=== PATIENT | male | born 1955 | race Caucasian/White ===

== ENCOUNTER 2016-12-09 15:32 | Emergency (ER) | payer OTHER ==
--- NOTE | 2016-12-09 16:04 | EDM.PDOC ---
ED HPI GENERAL MEDICAL PROBLEM - General Chief Complaint: Trauma Stated Complaint: PELVIC PAIN,BUCKED OFF HORSE Time Seen by Provider: 12/09/16 15:55 Source of Information: Reports: Patient History Limitations: Reports: No Limitations - History of Present Illness INITIAL COMMENTS - FREE TEXT/NARRATIVE: 61-year-old male presents to the ED for evaluation after being bucked off a horse at noon today. Patient reports first time he got on his horse all year. Horse started bucking almost immediately when he got into the saddle. The horse bucked twice. While he was up in the air the horse bucked the second time and met him with the saddle in the perineum and pelvis area. He then fell off the horse and landed in the sand on his back. Did not hit his head or hurt his neck. Did not knock the wind out of him. Since the time of injuries had trouble walking due to severe pain in his anterior lower abdomen and pelvis area. Denies any injuries to the testicles. Patient has voided twice and look for blood and did not see any since the time of injury. Does feel diffuse lower abdominal pain and some bloating. He has not had a bowel movement since time of injury. No some dysuria with voiding. Very painful to try and walk. Pain is felt mostly anteriorly over the pubic symphysis. Onset: Today Onset Date: 12/09/16 Onset Time: 12:00 Duration: Hour(s):, Getting Worse Location: Reports: Pelvis (Perineum) Pelvic Pain Score (Numeric/FACES): 10 - Related Data Allergies Allergy/AdvReac Type Severity Reaction Status Date / Time No Known Allergies Allergy Verified 12/09/16 16:44 Past Medical History Cardiovascular History: Reports: Hypertension (Mild hypertension) Genitourinary History: Reports: BPH, Renal Calculus (Did pass the stone on his own. Happened one time) Endocrine/Metabolic History: Reports: Diabetes, Type II (Has been type II diabetic for about 10 years. Controlled currently on metformin 1 g twice daily and glyburide 5 mg twice daily. Also uses Lantus insulin 50 units twice a day.) Social & Family History - Tobacco Use Smoking Status *Q: Never Smoker - Caffeine Use Caffeine Use: Reports: Coffee - Recreational Drug Use Recreational Drug Use: No - Living Situation & Occupation Living situation: Reports: Occupation: Employed Review of Systems - Review of Systems Review Of Systems: See Below Constitutional: Reports: No Symptoms Eyes: Reports: Other Ears: Reports: No Symptoms Nose: Reports: No Symptoms Mouth/Throat: Reports: No Symptoms Respiratory: Reports: No Symptoms Cardiovascular: Reports: No Symptoms GI/Abdominal: Reports: Abdominal Pain (Feels a little bloated with diffuse lower abdominal discomfort today.) Genitourinary: Reports: Dysuria (Mild), Painful Urination (Mild has voided twice since time of injury at noon) Musculoskeletal: Reports: Back Pain, Other Skin: Reports: No Symptoms (Pelvic pain and perineum pain.) Neurological: Reports: No Symptoms Psychiatric: Reports: No Symptoms ED EXAM, GENERAL - Physical Exam Exam: See Below Exam Limited By: No Limitations General Appearance: Alert, WD/WN, No Apparent Distress, Other (Vital signs are not stable. He is hypertensive at 146/19 is went as high as 171/101 with a resting heart rate of 132/m. This is sinus tachycardia. Represent significant pain response) Head: Atraumatic, Normocephalic. No: Facial Swelling, Facial Tenderness, Sinus Tenderness Neck: Normal Inspection, Supple, Non-Tender, Full Range of Motion Respiratory/Chest: No Respiratory Distress, Lungs Clear, Normal Breath Sounds, No Accessory Muscle Use, Other (Compression of all ribs and sternum showed no evidence of fracture or injury to the thorax.). No: Rhonchi, Wheezing, Retractions, Splinting Cardiovascular: Normal Peripheral Pulses, Regular Rate, Rhythm, No Edema, No Murmur Peripheral Pulses: 3+: Posterior Tibial (L), Posterior Tibial (R), Dorsalis Pedis (L), Dorsalis Pedis (R) GI/Abdominal: Tender (Diffuse tenderness across both lower quadrants infraumbilically and particularly suprapubically. There is no change in color. He has severe tenderness on minimal palpation over the pubic symphysis. There is a slight bruise or ecchymoses approximate 1.4 cm in diameter just to the left of the penis over the superior pubic ramus.), Abnormal Bowel Sounds ( Hypoactive bowel sounds in all 4 quadrants.) (Male) Exam: Other (Scrotum and scrotal contents are uninjured. Penis shows no blood at the urethral meatus.) Rectal (Males) Exam: Normal Rectal Tone, Other (Prostate is proximal be 3 times normal size but is in the normal position and is not high or riding and was nontender.). No: Prostate Normal Back Exam: Normal Inspection, Other (Palpation of the neck thoracic and lumbar spine and SI joints did not show any tenderness or contusion abrasions.) Extremities: Other (He cannot lift either leg off the gurney on his own volition due to pain in his pelvis. I could lift them in flexion and flexion at the knee with internal/external rotation of both hips without any discomfort. Full unopposed range of motion of both upper extremities no injuries to the wrists elbows or shoulders.) Neurological: Alert, Oriented, CN II-XII Intact, Normal Cognition, Normal Gait Psychiatric: Normal Affect, Normal Mood Skin Exam: Warm, Dry, Intact, Normal Color, No Rash Course - Vital Signs Last Recorded V/S: Last Vital Signs Temp 36.3 C 12/09/16 20:44 Pulse 126 H 12/09/16 20:44 Resp 20 12/09/16 20:44 BP 150/129 H 12/09/16 20:44 Pulse Ox 96 12/09/16 20:44 - Orders/Labs/Meds Labs: Laboratory Tests 12/09/16 12/09/16 12/09/16 Range/Units 16:13 16:28 16:28 WBC 17.01 H (4.23-9.07) K/mm3 RBC 4.55 L (4.63-6.08) M/mm3 Hgb 14.3 (13.7-17.5) gm/L Hct 40.6 (40.1-51.0) % MCV 89.2 (79.0-92.2) fl MCH 31.4 (25.7-32.2) pg MCHC 35.2 (32.2-35.5) g/dl RDW Std Deviation 40.6 (35.1-43.9) fL Plt Count 199 (163-337) K/mm3 MPV 10.1 (9.4-12.3) fl Neutrophils % (Manual) 85 H (40-60) % Band Neutrophils % 0 (0-10) % Lymphocytes % (Manual) 11 L (20-40) % Atypical Lymphs % 0 % Monocytes % (Manual) 3 (2-10) % Eosinophils % (Manual) 1 (0.8-7.0) % Basophils % (Manual) 0 L (0.2-1.2) Platelet Estimate Adequate RBC Morph Comment Normal PT (8.0-13.0) SECONDS INR APTT (22-36) SECONDS Sodium 135 L (136-145) mEq/L Potassium 3.9 (3.5-5.1) mEq/L Chloride 101 (98-107) mEq/L Carbon Dioxide 25 (21-32) mEq/L Anion Gap 12.9 (5-15) BUN 9 (7-18) mg/dL Creatinine 1.1 (0.7-1.3) mg/dL Est Cr Clr Drug Dosing 76.42 mL/min Estimated GFR (MDRD) > 60 (>60) mL/min BUN/Creatinine Ratio 8.2 L (14-18) Glucose 269 H (80-115) mg/dL Calcium 9.2 (8.5-10.1) mg/dL Total Bilirubin 1.1 H (0.2-1.0) mg/dL AST 26 (15-37) U/L ALT 41 (16-63) U/L Alkaline Phosphatase 49 (46-116) U/L Total Protein 6.9 (6.4-8.2) g/dl Albumin 4.1 (3.4-5.0) g/dl Globulin 2.8 gm/dL Albumin/Globulin Ratio 1.5 (1-2) Urine Color Yellow (Yellow) Urine Appearance Clear (Clear) Urine pH 6.0 (5.0-8.0) Ur Specific [place] 1.010 (1.005-1.030) Urine Protein Negative (Negative) Urine Glucose (UA) Trace H (Negative) Urine Ketones Negative (Negative) Urine Occult Blood Negative (Negative) Urine Nitrite Negative (Negative) Urine Bilirubin Negative (Negative) Urine Urobilinogen 0.2 (0.2-1.0) Ur Leukocyte Esterase 2+ H (Negative) Urine RBC 0-5 (0-5) /hpf Urine WBC 10-20 H (0-5) /hpf Ur Epithelial Cells 0-5 (0-5) /hpf Urine Bacteria Few (FEW) /hpf Urine Mucus Not seen (FEW) /hpf Blood Type 12/09/16 12/09/16 Range/Units 16:28 16:28 WBC (4.23-9.07) K/mm3 RBC (4.63-6.08) M/mm3 Hgb (13.7-17.5) gm/L Hct (40.1-51.0) % MCV (79.0-92.2) fl MCH (25.7-32.2) pg MCHC (32.2-35.5) g/dl RDW Std Deviation (35.1-43.9) fL Plt Count (163-337) K/mm3 MPV (9.4-12.3) fl Neutrophils % (Manual) (40-60) % Band Neutrophils % (0-10) % Lymphocytes % (Manual) (20-40) % Atypical Lymphs % % Monocytes % (Manual) (2-10) % Eosinophils % (Manual) (0.8-7.0) % Basophils % (Manual) (0.2-1.2) Platelet Estimate RBC Morph Comment PT 10.7 (8.0-13.0) SECONDS INR 0.98 APTT 23 (22-36) SECONDS Sodium (136-145) mEq/L Potassium (3.5-5.1) mEq/L Chloride (98-107) mEq/L Carbon Dioxide (21-32) mEq/L Anion Gap (5-15) BUN (7-18) mg/dL Creatinine (0.7-1.3) mg/dL Est Cr Clr Drug Dosing mL/min Estimated GFR (MDRD) (>60) mL/min BUN/Creatinine Ratio (14-18) Glucose (80-115) mg/dL Calcium (8.5-10.1) mg/dL Total Bilirubin (0.2-1.0) mg/dL AST (15-37) U/L ALT (16-63) U/L Alkaline Phosphatase (46-116) U/L Total Protein (6.4-8.2) g/dl Albumin (3.4-5.0) g/dl Globulin gm/dL Albumin/Globulin Ratio (1-2) Urine Color (Yellow) Urine Appearance (Clear) Urine pH (5.0-8.0) Ur Specific [place] (1.005-1.030) Urine Protein (Negative) Urine Glucose (UA) (Negative) Urine Ketones (Negative) Urine Occult Blood (Negative) Urine Nitrite (Negative) Urine Bilirubin (Negative) Urine Urobilinogen (0.2-1.0) Ur Leukocyte Esterase (Negative) Urine RBC (0-5) /hpf Urine WBC (0-5) /hpf Ur Epithelial Cells (0-5) /hpf Urine Bacteria (FEW) /hpf Urine Mucus (FEW) /hpf Blood Type O NEGATIVE Meds: Medications Discontinued Medications Generic Name Dose Route Start Last Admin Trade Name Tana PRN Reason Stop Dose Admin Hydromorphone HCl 1 mg 12/09/16 16:06 12/09/16 17:00 Dilaudid IVPUSH 12/09/16 16:07 1 mg ONETIME ONE Administration Sodium Chloride 1,000 mls @ 999 mls/hr 12/09/16 16:15 12/09/16 16:55 Normal Saline IV 999 mls/hr ASDIRECTED LAINEY Administration Iopamidol 150 ml 12/09/16 16:20 12/09/16 16:43 Isovue-300 (61%) IVPUSH 12/09/16 16:21 150 ml ONETIME ONE Administration Metoclopramide HCl 10 mg 12/09/16 16:06 12/09/16 16:56 Reglan IVPUSH 12/09/16 16:07 10 mg ONETIME ONE Administration Sodium Chloride 10 ml 12/09/16 16:20 12/09/16 16:43 Saline Flush FLUSH 12/09/16 16:21 10 ml ONETIME ONE Administration - Radiology Interpretation Free Text/Narrative:: 61-year-old male presents to the ED after being bucked off a horse at noon today. Patient states the horse bucked twice with the second block causing this settled to strike a very hard in the perineum and pelvis area. Not bleeding came down on the saddle horn. He fell off a horse after that landing hard on his back in the sand. Since time of injury he has had increasing pain in his lower abdomen and pelvis and can barely walk. Does not feel dizzy or lightheaded. He is having significant pain. Resting heart rate was 1 32/m sinus tachycardia. Blood pressure is elevated 170 /101 suggesting significant pain he has voided twice without noted blood but mild dysuria with voiding. He has not had a bowel movement. He is a type II diabetic controlled with insulin and oral medications. There are no open wounds. Examination suggests reveals pain across both lower quadrants of the lower abdomen with guarding. Marked pain on palpation of the pubic symphysis suggestive of likely diastases or fracture of the superior pubic rami particular in the left side. No pain on palpation of the ischial tuberosities. No blood at the urethral meatus and the scrotal contents are normal. No other injuries are identified. Concern for pelvic fracture appreciated. There is no evidence of open book instability. Plan urinalysis IV normal saline at open since he has some sinus tachycardia Dilaudid 1 mg IV with Reglan [address] of the abdomen and pelvis will be performed with IV contrast. Type and screen ordered. Possibility of retroperitoneal bleeding exists. - Re-Assessments/Exams Free Text/Narrative Re-Assessment/Exam: 12/09/16 16:35: CT of the abdomen and pelvis reveals the liver or the spleen the gallbladder pancreas and kidneys to be within normal limits. Normal bowel pattern. There is however a pelvic hematoma that is pushing the urinary bladder to the right side. There is a flush of contrast in the middle of the hematoma suggesting continued active bleeding. No identified fracture within the pelvis ring identified. Patient is exquisitely tender on palpation of the pubic symphysis suggesting possible ligamentous injury or minimal diastases. Interestingly he has appreciated can walk backwards without much pain but cannot walk forwards. Due to the hematoma he will need to be transferred to a facility that may be able to provide interventional radiology treatment if needed to stop pelvic bleeding. Patient has not yet received pain medication. 12/09/16 17:10: Urinalysis shows a few 5-10 white blood cells but no blood. I contacted [facility] in [facility] as the patient has received care through the [facility] facility in the past. After several rounds it was determined that it was no interventional radiology availability at that facility and they declined to accept him. I was then able to speak to [facility] in [facility] and they too declined although they did have interventional radiology availability they did not have any intensive care beds and Dr. Reardon -- trauma surgeon did not feel comfortable accepting the patient in case there was not a definite bed available for him. 12/09/16 19:00: I was called away for Coumadin the ICU for a period of time over half an hour and this delayed further consultation with [facility] in [place] as this was the closest facility that could possibly accept care. I spoke with Dr. Leggett through the emergency department and he has accepted care.White blood cell count was 17.01 with a left shift of 85% neutrophils. Hemoglobin is 14.3 with hematocrit of 40.6 platelets normal 199,000. Coags were normal. Sodium was slightly low at 135 potassium 3.9. Anion gap is 12.9.. Creatinine is 1.1. Of note he did receive contrast for his CT abdomen and pelvis and he is on metformin and metformin should be withheld for the next 72 hours. Blood glucose was 269. Urinalysis showed 2+ leukocyte esterase and 10-20 WBCs per high-power field. Of note this was a non-catheterized specimen. No blood was appreciated within the urine that would make one suspicious for a urethral prosthetic injury. Departure - Departure Time of Disposition: 20:45 Disposition: DC/Tfer to Acute Hospital 02 Condition: Serious Clinical Impression: Pelvic hematoma in male - Discharge Information Referrals: Mark Lee MD [Primary Care Provider] - Forms: ED Department Discharge Additional Instructions: This patient was transferred to [facility] in [place] due to significant pelvic hematoma which appeared to be actively bleeding at the time of CT. No fractures are identified within the pelvic ring. Injury occurred as a result of a horse accident. Both hospitals in [facility] declined to accept the patient for various reasons. No interventional radiology available at [facility] and no ICU bed available at [facility] in [place]. He was there for fallen to [facility] in [place] for definitive management and care. Vital signs were stable at the time of discharge and pain was controlled.
[2016-12-09] MEDS ORDERED: Metoclopramide 10 MG/2 ML SDV IVPUSH ONE (16:06)
[2016-12-09] MEDS ORDERED: HYDROmorphone 1 MG/ML Syringe IVPUSH ONE (16:06)
[2016-12-09] MEDS ORDERED: Sodium Chloride 0.9% 1,000 ML IV SCH (16:15)
[2016-12-09] MEDS ORDERED: Iopamidol 612 MG/ML 150 ML Bottle IVPUSH ONE (16:20)
[2016-12-09] MEDS ORDERED: Sodium Chloride 0.9% 10 ML Syringe FLUSH ONE (16:20)
--- NOTE | 2016-12-09 17:27 | CT ---
CT abdomen and pelvis Technique: Multiple axial sections were obtained from above the dome of the diaphragm inferiorly through the pubic symphysis. Intravenous contrast was utilized. No oral contrast has been given. Findings: Soft tissue density is seen within the left lower pelvis which is compatible with pelvic hematoma. There is slight increased density within this hematoma which is felt compatible with contrast from active bleed. This finding displaces the inferior bladder. Pubic symphysis is slightly widened although the sacroiliac joints are within normal limits in width. This finding may be incidental. There is no discrete pelvic fracture noted. Vacuum phenomena is seen within the pubic symphysis. Visualized lung bases appear without acute change. Liver shows mild fatty infiltration without focal abnormality. Spleen appears within normal limits. Adrenal glands show no nodule. Pancreas shows calcifications without focal mass. Surgical clips are seen from prior cholecystectomy. Kidneys show symmetric contrast enhancement. Small low-density finding is noted off the left kidney measuring 1.0 cm which is felt compatible with minimal cyst. Aorta shows no aneurysmal dilatation. No retroperitoneal adenopathy is seen. Delayed images shows contrast within the distal ureters and within the bladder. Impression: 1. Left-sided pelvic hematoma measuring roughly 10.6 cm x 5.4 cm in size. Slight increased density within this hematoma is seen compatible with contrast from active extravasation. This hematoma causes mass effect upon the inferior left side of the bladder. 2. Other incidental findings as noted above. No other acute abnormality is otherwise seen. Diagnostic code #5
[2016-12-09 20:49] VITALS: BP 150/129
== END 2016-12-09 19:30 ==
LOC: JD.ED 15:32
DX: S30.0XXA Contusion of lower back and pelvis, initial encounter (principal); I10 Essential (primary) hypertension; E11.9 Type 2 diabetes mellitus without complications; Z87.442 Personal history of urinary calculi; X58.XXXA Exposure to other specified factors, initial encounter
CPT/HCPCS: 36415; 74177; 80053; 81001; 85025; 85610; 85730; 86900; 86901; 96361; 96374; 96375; 99285; J1170; J2765; J7040; J7050; Q9967